=== PATIENT | female | born 1980 | race Caucasian/White ===

== ENCOUNTER 2018-05-28 07:03 | Day surgery (SDC) | payer OTHER ==
--- NOTE | 2018-05-27 13:15 | PREOPHP ---
DATE OF ADMISSION: 05/28/2018 HISTORY OF PRESENT ILLNESS: Ms. Erica Menezes is a 37-year-old 3, para 2, history of abnorma l uterine bleeding/heavy periods, x1 and also multiparity, desires permanent surgical sterilization. PAST MEDICAL HISTORY: Depression. MEDICATIONS: None. PAST SURGICAL HISTORY: Tonsillectomy. OBSTETRICAL HISTORY: x2 vaginal deliveries, x1 termination of . GYNECOLOGIC HISTORY: 12, regular, with heavy periods. Sexually active with 1 partner. Denies any s exually transmitted infections. SOCIAL HISTORY: Denies any smoking, drugs or alcohol. FAMILY HISTORY: None. REVIEW OF SYSTEMS: All within normal except history of present illness. PHYSICAL EXAMINATION: HEENT: Within normal. LUNGS: CTA bilateral. CARDIOVASCULAR: S1, S2, regular rhythm. ABDOMEN: Soft, nontender, negative distention. EXTREMITIES: Negative edema. No calf tenderness. PELVIC: Vaginal: Normal external genitalia. Cervix negative CMT, negative lesions. Adnexa negativ e mass, nontender bilateral. Fundus is within normal limits. Ultrasound performed on 12/29/2017. FINDINGS: The uterus is 8.5 x 7.5 x 4.9 cm. The myometrium examination demonstrates 2 Intramural fi broids in the upper posterior body measuring 2.6 cm. The endometrium measures 21 mm. The right ovar y measures 3.9 x 2.5 x 2.7 cm. The left ovary measures 2.9 x 2.2 x 1.9 cm. IMPRESSION: Endometrial thickening/hyperplasia. Endometrial biopsy was benign polyp. ASSESSMENT: Abnormal uterine bleeding. Multiparity, desires permanent surgical sterilization. PLAN: Consent for a dilation and curettage with hysteroscopy, hydrothermal ablation with laparoscopi c bilateral tubal sterilization. Risks, benefits and alternatives explained. All questions were ans wered. Dictated By: MAAME JONES/TY Conf#: [id number] DID#: [id number]
[~2018-05-28] VITALS: Ht 160 cm; Wt 74.2 kg
[2018-05-28] MEDS ORDERED: ACETAMINOPHEN 500 MG TAB PO STA (07:09)
[2018-05-28 08:15] VITALS: BP 105/65; PULSE 100; RESP 18; Ht 160 cm; Wt 74.2 kg
== END 2018-05-28 09:11 | disposition home or self-care (01) ==
LOC: SDS 07:03
PROVIDERS: ATTEND Obstetrics & Gynecology
DX: Z30.2 Encounter for sterilization (principal); Z53.8 Procedure and treatment not carried out for other reasons
CPT/HCPCS: 85025; 86850; 86900; 86901; Z7610

== ENCOUNTER 2018-06-07 15:15 | Day surgery (SDC) | payer OTHER ==
[2018-06-06 17:39] VITALS: BMI 28.9
[2018-06-07] VITALS (14 sets, daily range): BP systolic 112–136; BP diastolic 67–89; PULSE 60–94; RESP 12–18; Ht 160 cm; Wt 72.6 kg
[~2018-06-07] VITALS: Ht 160 cm; Wt 72.6 kg
[~2018-06-07 15:15] MED LIST: LACTATED RINGER'S 1,000 ML IV SCH
--- NOTE | 2018-06-07 16:22 | HPN ---
Date/Time of Note Date/Time of Note DATE: 06/07/18 TIME: 16:22 Interval H&P Admission Note Pt. seen H&P reviewed: No system changes MAAME PATEL MD Jun 07, 2018 16:22
--- NOTE | 2018-06-07 16:35 | PREAC ---
Date/Time of Note Date/Time of Note DATE: 06/07/18 TIME: 16:32 Anesthesia Eval and Record Evaluation Time Pre-Procedure Interview DATE: 06/07/18 TIME: 16:32 Age 37 Sex female NPO: 8 hrs Preoperative diagnosis Request for Sterilization Planned procedure Hysteroscopy and D&C and Laparoscopic Bilateral Tubal Ligation Past Medical History Past Medical History: None Surgery & Anesthesia Issues No known issue Meds Anticoagulation: No Beta Louise within 24 hr: No Reason Beta Louise not given: Pt. not on B-Louise No Active Prescriptions or Reported Meds Current Medications Lactated Ringer's 1,000 ml @ 0 mls/hr Q0M IV ; Start 06/07/18 at 15:00 Meds reviewed: Yes Allergies Coded Allergies: No Known Allergy (Unverified , 05/28/18) Allergies Reviewed: Yes Labs/Studies Labs Reviewed: Reviewed by anesthesiologist Result Diagram: 06/07/18 1535 Laboratory Tests 06/07/18 15:35 test: Negative Studies: ECG (n/a), CXR (n/a) Pre-procedure Exam Last vitals Vital Signs Date Temp Pulse Resp B/P (MAP) Pulse Ox O2 O2 Flow FiO2 Time Delivery Rate 06/07/18 98.6 92 16 112/67 100 Room Air 15:44 (82) Airway: Adequate mouth opening, Adequate thyromental dist Mallampati: Mallampati II Teeth: Normal Lung: Normal Heart: Normal ASA Physical Status ASA physical status: 1 Emergency: None Planned Anesthetic General/MAC: ETT Nerve block: TAP (bilateral) Planned Pain Management Single shot nerve block, Parenteral pain med Pre-operative Attestations Prior to commencing anesthesia and surgery, the patient was re-evaluated, there was verification of: *The patient's identity *The results of appropriate recent lab work and preoperative vital signs *The above evaluation not changing prior to induction *Anesthetic plan, risk benefits, alternative and complications discussed with patient/family; questions answered; patient/family understands, accepts and wishes to proceed. RUBEN DELUCA MD Jun 07, 2018 16:35
[2018-06-07] MEDS ORDERED: ROCURONIUM 50 MG INJ ONE (16:38)
[2018-06-07] MEDS ORDERED: MIDAZOLAM 1 MG/ML 2 ML INJ ONE (16:38)
[2018-06-07] MEDS ORDERED: PROPOFOL 20 ML ONE (16:38)
[2018-06-07] MEDS ORDERED: FENTAnyl 50 MCG/ML VIAL ONE (16:38)
[2018-06-07] MEDS ORDERED: ROPIVACAINE 0.2% 20 ML VIAL ONE (16:38)
[2018-06-07] MEDS ORDERED: ONDANSETRON 4 MG INJ IV PRN (17:00)
[2018-06-07] MEDS ORDERED: FENTAnyl 50 MCG/ML VIAL IV PRN ×3 (17:00)
[2018-06-07] MEDS ORDERED: METOCLOPRAMIDE 10 MG INJ IV PRN (17:00)
[2018-06-07] MEDS ORDERED: HYDROmorphONE 1 MG/5 ML IV SYRINGE IV PRN ×3 (17:00)
[2018-06-07] MEDS ORDERED: MEPERIDINE 25 MG INJ IV PRN (17:00)
[2018-06-07] MEDS ORDERED: DIPHENHYDRAMINE 50 MG INJ IV PRN (17:00)
[2018-06-07] MEDS ORDERED: METOCLOPRAMIDE 10 MG INJ ONE (18:10)
[2018-06-07] MEDS ORDERED: ONDANSETRON 4 MG INJ ONE (18:10)
[2018-06-07] MEDS ORDERED: KETOROLAC 30 MG INJ ONE (18:10)
[2018-06-07] MEDS ORDERED: DEXAMETHASONE 4 MG/ML 5 ML INJ ONE (18:10)
[2018-06-07] MEDS ORDERED: CEFAZOLIN 1 GM INJ ONE (18:10)
[2018-06-07] MEDS ORDERED: GLYCOPYRROLATE 0.4 MG INJ ONE (18:24)
[2018-06-07] MEDS ORDERED: NEOSTIGMINE 3 MG/3 ML SYRINGE ONE (18:24)
--- NOTE | 2018-06-07 18:30 | OPPN ---
Date/Time of Note Date/Time of Note DATE: 06/07/18 TIME: 18:24 Operative Report Planned Procedure Procedure date Jun 07, 2018 Procedure(s) examination under anesthesia, diagnostic hysteroscopy, dilation and curettage, endometrial hydrothermal ablation, laparoscopic bilateral tubal fulguration Performed by see signature line Bath Solution Maker: MAAME PATEL MD 2nd Bath Solution Maker none Anesthesiologist: RUBEN DELUCA MD Pre-procedure diagnosis abnormal uterine bleeding/ multiparity desire permanent surgical sterilization [id number] Anesthesia Type: Knfzx1f general Post-Procedure Post-procedure diagnosis same Findings normal uterus tubes and ovaries Estimated Blood Loss: 0 - 10 mls (10) Specimen(s) endometrial curetting Grafts/Implant(s) none Complication(s) none MAAME PATEL MD Jun 07, 2018 18:30
--- NOTE | 2018-06-07 18:32 | PD.PPDC ---
[employer] Discharge Instruction Condition [id number] Patient Condition: [id number] Fair Diet Bvfif2Wm Diet: Sehvf3a Resume Regular Diet Activity/Restrictions Nyoaw2Md Activity: Yhbgt9t Normal Activity May Shower Naihj3Sn Restrictions: Gsvmy2g No Exercising No Lifting No Driving No Sexual Activity Nothing in the Vagina No Bonifay No Tampons, douche Follow-up Follow-up with Physician: 2, Week/Weeks Return to clinic for [id number] ROOM SERVICE FOOD SERVICE ATTENDANT Instructions: Uzsuv3a Fever greater than 101 Chills Worsening abdominal pain Excessive Vaginal Bleeding More than 2 pads per hour Unable to tolerate diet Onzgj4Dt OB Instructions: Enjls0k Breast Tenderness Depression Blurried Vision Headache Mchix8Pi Surgical Instructions: Qicfa1e Incisional Drainage Incisional Redness MAAME PATEL MD Jun 07, 2018 18:32
--- NOTE | 2018-06-07 18:37 | PAC ---
Date/Time of Note Date/Time of Note DATE: 06/07/18 TIME: 18:37 Post-Anesthesia Notes Post-Anesthesia Note Last documented vital signs Vital Signs Date Temp Pulse Resp B/P (MAP) Pulse Ox O2 O2 Flow FiO2 Time Delivery Rate 06/07/18 98.6 92 16 112/67 100 Room Air 18:44 (82) Activity: WNL Respiratory function: WNL Cardiovascular function: WNL Mental status: Baseline Pain reasonably controlled: Yes Hydration appropriate: Yes Nausea/Vomiting absent: Yes RUBEN DELUCA MD Jun 07, 2018 18:37
--- NOTE | 2018-06-08 12:10 | OPR ---
DATE OF OPERATION: 06/07/2018 PREOPERATIVE DIAGNOSES: 1. Abnormal uterine bleeding. 2. Multiparous. 3. Desires permanent surgical sterilization. POSTOPERATIVE DIAGNOSES: 1. Abnormal uterine bleeding. 2. Multiparous. 3. Desires permanent surgical sterilization. PROCEDURE: Examination under anesthesia, diagnostic hysteroscopy, dilation and curettage, endometria l hydrothermal ablation, laparoscopic bilateral tubal fulguration. SURGEON: Cuate Ortiz MD CHILD CARE LEADER: None. ANESTHESIA: General. COMPLICATIONS: None. ESTIMATED BLOOD LOSS: 10 mL. FINDINGS: Bimanual size within normal, position anteverted. Hysteroscopic view of the uterus adequa te. [place] normal. Adhesion absent. Laparoscopic view: Normal uterus, tubes and ovaries. PATHOLOGY: Endometrial contents. DESCRIPTION OF PROCEDURE: After explaining the risks, benefits and alternatives, the patient consent signed in chart, the patient was taken to the operating room where general anesthesia was obtained w cecilia woods. The patient was then examined under anesthesia and found to have a small antevert ed uterus with normal adnexa. She was then placed in a dorsal lithotomy position, and prepared and d raped in a sterile fashion. A heavy weighted speculum was then placed in the patient's vagina, and t he anterior lip of the cervix was grasped with a single-tooth tenaculum. At this point, the hysteros cope was inserted via the cervix into the uterine cavity, and findings noted above. At this point, t he hysteroscope was removed, and a sharp curettage was performed and specimen was sent to pathology. The [employer] hysteroscope was then reintroduced into the uterine cavity and activated for a pproximately 10 minutes with good blanching. The [employer] hysteroscope was then removed, an d a HUMI uterine manipulator was advanced into the uterus to provide means to manipulate the uterus. The speculum was then removed from the patient's vagina. Attention was then turned to the patient's abdomen, where a 5 mm skin incision was made in the umbilical fold. The Veress needle was carefully introduced into the peritoneal cavity at 45-degree angle while tenting the abdominal wall. Intraper itoneal placement was confirmed by use of water-filled syringe, and a drop in intraabdominal pressure with insufflation of CO2 gas. The trocar and sleeve were advanced without difficulty into the abdom en, where intra-abdominal placement was confirmed by a laparoscope. Pneumoperitoneum was obtained wi th 4 liters of CO2 gas, and a 5 mm trocar and sleeve were then advanced without difficulty into the a bdomen, where intra-abdominal placement was confirmed by a laparoscope. A second skin incision was m keo 2 cm above the symphysis pubis in the midline. The second trocar and sleeve were then advanced u nder direct visualization. A survey of the patient's pelvis and abdomen revealed normal. At this po int, the right and left fallopian tube was fulgurated at multiple areas of the ampullary and isthmus area with good blanching. There was no bleeding from the mesosalpinx. The instruments were then rem berna from the patient's abdomen, and the incision was repaired with 3-0 Vicryl. The HUMI was then re moved from the vagina without bleeding noted from the cervix. The patient tolerated procedure well. All counts were correct. The patient was taken to recovery room in stable condition. Dictated By: CUATE JONES/TY Conf#: [id number] DID#: [id number]
== END 2018-06-07 20:38 | disposition home or self-care (01) ==
LOC: SDS 15:15
PROVIDERS: ATTEND Obstetrics & Gynecology
DX: N93.8 Other specified abnormal uterine and vaginal bleeding (principal); Z30.2 Encounter for sterilization
CPT/HCPCS: 58563; 58670; 84702; 85025; 86850; 86900; 86901; J0690; J1100; J1170; J1885; J2250; J2405; J2710; J2765; J2795; J3010; Z7610; 88305